=== PATIENT | female | born 1995 | race Caucasian/White ===

== ENCOUNTER 2016-07-12 04:04 | Inpatient (IN) | payer BC, OTHER ==
[2016-07-12] VITALS (18 sets, daily range): BP systolic 101–133; BP diastolic 55–85
[~2016-07-12] VITALS: Ht 165.1 cm; Wt 81.8 kg
[~2016-07-12 04:04] MED LIST: ABILIFY10 MG PO; MACROBID100 MG PO; PROZAC10 M1 PO; VYVANSE20 MG PO
[2016-07-12] MEDS ORDERED: PRENATA CHEWAB1 EACH PO (04:44)
[2016-07-12 06:14] LABS: EOSINOPHIL (%) 0.4 % (0-5); EOSINOPHIL COUNT 0.1 K/uL (0-0.3); HEMATOCRIT 33.9 % (36.0-46.0); IMMATURE GRANULOCYTE (%) 0.2 % (0.0-0.7); IMMATURE GRANULOCYTE COUNT 0.3 K/uL; LYMPHOCYTE COUNT 2.5 K/uL (1.0-2.8); MCH 30.8 PG (29.0-34.0); MCHC 35.4 G/DL (30.0-36.0); MCV 86.9 FL (83-99); MEAN PLAT.VOLUME 10.1 uM^3 (9.5-12.4); MONOCYTE (%) 7.1 % (3-12); NEUTROPHIL (%) 73.9 % (45-76); NEUTROPHIL COUNT 10.1 K/uL (1.8-6.4); PLATELET COUNT 140 K/uL (156-360); RBC DIS.WIDTH-CV 12.6 % (11.8-14.6); RBC DIS.WIDTH-SD 38.6 % (39-53); WHITE BLOOD COUNT 13.6 K/uL (4.1-10.2)
[2016-07-12] MEDS ORDERED: IBUPROFEN800 MG PO (11:35)
[2016-07-13 07:28] VITALS: BP 108/63
[2016-07-13 16:09] VITALS: BP 117/74
[2016-07-13 23:24] VITALS: BP 120/57
[2016-07-14 07:42] VITALS: BP 110/56
[2016-07-14] MEDS ORDERED: ENDOCET 5-3251 EACH PO (08:30)
[2016-07-14 14:31] VITALS: BP 108/56
== END 2016-07-14 17:34 | disposition home or self-care (01) | DRG 775 ==
LOC: LDRP-OP 04:04 → 2WEST 04:05 → LDRP-OP 09:22 → 2WEST 11:12 → LDRP-OP 08-04 19:09
PROVIDERS: Midwife
PROC: 0HQ9XZZ Repair Perineum Skin, External Approach (ICD-10-PCS; principal; 2016-07-12)
PROC: 10E0XZZ Delivery of Products of Conception, External Approach (ICD-10-PCS; principal; 2016-07-12)
PROC: 10907ZC Drainage of Amniotic Fluid, Therapeutic from Products of Conception, Via Natural or Artificial Opening (ICD-10-PCS; 2016-07-12)
PROC: 00HU33Z Insertion of Infusion Device into Spinal Canal, Percutaneous Approach (ICD-10-PCS; 2016-07-12)
PROC: 3E0S3CZ (ICD-10-PCS; 2016-07-12)
DX: O70.0 First degree perineal laceration during delivery (principal); O99.824 Streptococcus B carrier state complicating childbirth; O69.1XX0 Labor and delivery complicated by cord around neck, with compression, not applicable or unspecified; Z3A.41 41 weeks gestation of pregnancy; Z37.0 Single live birth
CPT/HCPCS: 85025; C1755; J0290; J2795; J3010; J7050; J7120